=== PATIENT | male | born 1955 | race Caucasian/White ===

== ENCOUNTER 2017-11-09 19:08 | Inpatient (IN) | payer OTHER, MEDICAID, BC ==
[2017-11-09 20:17] LABS: ADD MAN DIFF? NO
[2017-11-09 20:22] LABS: WHITE BLOOD COUNT 17.1 10^3/ul (4.8-10.8)
[2017-11-09 20:22] LABS: ABNORMAL IP MESSAGE 1; BASOPHILS % 0.2 % (0.0-2.0); HEMATOCRIT 44.9 % (42.0-52.0); HEMOGLOBIN 15.2 g/dl (14.0-18.0); LYMPHOCYTES # 1.4 10^3/ul (0.8-2.9); LYMPHOCYTES % 8.2 % (15.0-51.0); MEAN CORPUSCULAR HEMOGLOBIN 32.8 pg (29.0-33.0); MEAN CORPUSCULAR HGB CONC 33.9 g/dl (32.0-37.0); MEAN PLATELET VOLUME 9.1 fl (7.4-10.4); MONOCYTE # 1.8 10^3/ul (0.3-0.9); MONOCYTES % 10.8 % (0.0-11.0); NEUTROPHIL # 13.6 10^3/ul (1.6-7.5); NEUTROPHILS % 79.9 % (39.0-77.0); PLATELET COUNT 258 10^3/UL (140-415); POSITIVE DIFF @See below; RED BLOOD COUNT 4.63 10^6/ul (4.70-6.10); RED CELL DISTRIBUTION WIDTH 11.8 % (11.5-14.5)
[2017-11-09] MEDS: SODIUM CHLORIDE 0.9% 1L BAG IV* (20:25)
[2017-11-09] MEDS: CEFEPIME 2GM/50 ML (PMX) 50 ML IVPB (20:26)
[2017-11-09 20:43] LABS: LACTIC ACID 3.5 mmol/L (0.5-2.0)
[2017-11-09 20:45] LABS: INR 1.09; PROTIME 14.3 Sec (11.9-14.9); PT RATIO 1.1
[2017-11-09 20:46] LABS: PARTIAL THROMBOPLASTIN TIME 31.5 Sec (25.0-35.0)
[2017-11-09 21:01] LABS: ALANINE AMINOTRANSFERASE 16 IU/L (13-69); ALBUMIN/GLOBULIN RATIO 0.93; ALKALINE PHOSPHATASE 158 IU/L (42-121); ANION GAP 22 (8-16); ASPARTATE AMINO TRANSFERASE 21 IU/L (15-46); BILIRUBIN,INDIRECT 0.6 mg/dl (0-1.1); BILIRUBIN,TOTAL 0.6 mg/dl (0.2-1.3); BLOOD UREA NITROGEN 20 mg/dl (7-20); CALCIUM 9.8 mg/dl (8.4-10.2); CARBON DIOXIDE 22 mmol/L (21-31); CHLORIDE 99 mmol/L (97-110); GLUCOSE 135 mg/dl (70-220); SODIUM 138 mmol/L (135-144); TOTAL PROTEIN 8.3 g/dl (6.1-8.1)
[2017-11-09 21:10] LABS: B-TYPE NATRIURETIC PEPTIDE 781 PG/ML (0-125)
[2017-11-09 21:13] LABS: TROPONIN-I < 0.012 ng/ml (0.00-0.12)
[2017-11-09] MEDS: morphine 4 MG/ML VIAL IV (21:53)
[2017-11-09 22:29] LABS: LACTIC ACID 1.7 mmol/L (0.5-2.0)
[2017-11-09] MEDS: KETOROLAC 15 MG INJ IV (22:47)
[2017-11-09] MEDS: AZITHROMYCIN 500MG/NS (PMX) 250 ML IVPB (22:47)
[2017-11-09] MEDS: ACETAMINOPHEN 500 MG TAB PO (22:47)
[2017-11-10] MEDS ORDERED: ZOLPIDEM 5 MG TAB PO
[2017-11-10] MEDS ORDERED: morphine 2 MG INJ IV
[2017-11-10] MEDS ORDERED: MAGNESIUM HYDROXIDE 30ML CUP PO
[2017-11-10] MEDS ORDERED: DOCUSATE SODIUM 100 MG CAP PO
[2017-11-10] MEDS ORDERED: NACL 0.9% 3 ML SYG IV
[2017-11-10] MEDS ORDERED: ONDANSETRON 4 MG INJ IV
[2017-11-10] MEDS: SOD CHLORIDE 0.9% 1,000 ML IV ×3 (01:40→22:13)
[2017-11-10 01:46] LABS: LACTIC ACID 1.4 mmol/L (0.5-2.0)
[2017-11-10] MEDS: PROMETHAZINE/CODEINE 5ML CUP PO ×4 (06:13→20:03)
[2017-11-10 07:14] LABS: WHITE BLOOD COUNT 12.3 10^3/ul (4.8-10.8)
[2017-11-10 07:14] LABS: ABNORMAL IP MESSAGE 1; HEMATOCRIT 35.2 % (42.0-52.0); HEMOGLOBIN 12.1 g/dl (14.0-18.0); MEAN CORPUSCULAR HEMOGLOBIN 33.5 pg (29.0-33.0); MEAN CORPUSCULAR HGB CONC 34.4 g/dl (32.0-37.0); MEAN CORPUSCULAR VOLUME 97.5 fl (82.0-101.0); MEAN PLATELET VOLUME 9.3 fl (7.4-10.4); PLATELET COUNT 214 10^3/UL (140-415); POSITIVE DIFF @See below; RED BLOOD COUNT 3.61 10^6/ul (4.70-6.10); RED CELL DISTRIBUTION WIDTH 11.9 % (11.5-14.5)
[2017-11-10 07:22] LABS: ADD MAN DIFF? YES
[2017-11-10 07:30] LABS: HEMOGLOBIN A1C 4.9 % (0-5.9)
[2017-11-10 07:46] LABS: ANION GAP 13 (8-16); BLOOD UREA NITROGEN 21 mg/dl (7-20); CARBON DIOXIDE 23 mmol/L (21-31); CHLORIDE 105 mmol/L (97-110); CREATININE 1.15 mg/dl (0.61-1.24); GLUCOSE 111 mg/dl (70-220); MAGNESIUM 1.7 mg/dl (1.7-2.5); PHOSPHORUS 2.5 mg/dl (2.5-4.9); POTASSIUM 3.6 mmol/L (3.5-5.1); SODIUM 137 mmol/L (135-144)
[2017-11-10] MEDS: CEFTRIAXONE 1 GM/50 ML (PMX) 50 ML IVPB (09:04)
[2017-11-10] MEDS: ACETAMINOPHEN 325 MG TAB PO (09:05)
[2017-11-10] MEDS: HYDROCODONE/APAP (5/325) TAB PO (16:38)
[2017-11-10] MEDS: AZITHROMYCIN 500MG/NS (PMX) 250 ML IVPB (22:56)
[2017-11-11] MEDS: HYDROCODONE/APAP (5/325) TAB PO ×3 (01:50→21:33)
[2017-11-11] MEDS: PROMETHAZINE/CODEINE 5ML CUP PO ×3 (06:17→22:41)
[2017-11-11] MEDS: SOD CHLORIDE 0.9% 1,000 ML IV ×2 (07:00→12:39)
[2017-11-11] MEDS: CEFTRIAXONE 1 GM/50 ML (PMX) 50 ML IVPB (09:25)
[2017-11-11 12:09] LABS: ADD UMIC YES; UR ASCORBIC ACID NEGATIVE (NEGATIVE); UR BILIRUBIN (Dip) NEGATIVE (NEGATIVE); UR BLOOD (Dip) 1+ mg/dL (NEGATIVE); UR CLARITY CLEAR (CLEAR); UR COLOR YELLOW (YELLOW); UR GLUCOSE (Dip) NEGATIVE (NEGATIVE); UR KETONES (Dip) TRACE mg/dL (NEGATIVE); UR LEUKOCYTE ESTERASE (Dip) NEGATIVE Leu/ul (NEGATIVE); UR NITRITE (Dip) NEGATIVE (NEGATIVE); UR RBC 0 /HPF (0-5); UR SPECIFIC GRAVITY (Dip) 1.014 (1.003-1.030); UR TOTAL PROTEIN (Dip) NEGATIVE (NEGATIVE); UR UROBILINOGEN (Dip) 2+ mg/dL (NEGATIVE); UR WBC 0 /HPF (0-5)
[2017-11-11] MEDS: LEVOFLOXACIN 750MG/D5W (PMX) 150 ML IVPB (13:51)
[2017-11-11 13:54] LABS: ABNORMAL IP MESSAGE 1; HEMATOCRIT 32.9 % (42.0-52.0); HEMOGLOBIN 11.3 g/dl (14.0-18.0); MEAN CORPUSCULAR HEMOGLOBIN 33.4 pg (29.0-33.0); MEAN CORPUSCULAR HGB CONC 34.3 g/dl (32.0-37.0); MEAN CORPUSCULAR VOLUME 97.3 fl (82.0-101.0); MEAN PLATELET VOLUME 8.8 fl (7.4-10.4); PLATELET COUNT 189 10^3/UL (140-415); POSITIVE DIFF @See below; RED BLOOD COUNT 3.38 10^6/ul (4.70-6.10)
[2017-11-11 13:56] LABS: ADD MAN DIFF? YES
[2017-11-11 14:11] LABS: ALANINE AMINOTRANSFERASE 46 IU/L (13-69); ALBUMIN 2.3 g/dl (3.3-4.9); ALBUMIN/GLOBULIN RATIO 0.82; ALKALINE PHOSPHATASE 134 IU/L (42-121); ANION GAP 7 (8-16); ASPARTATE AMINO TRANSFERASE 62 IU/L (15-46); BILIRUBIN,INDIRECT 0.2 mg/dl (0-1.1); BILIRUBIN,TOTAL 0.2 mg/dl (0.2-1.3); BLOOD UREA NITROGEN 13 mg/dl (7-20); CALCIUM 7.7 mg/dl (8.4-10.2); CARBON DIOXIDE 22 mmol/L (21-31); CHLORIDE 109 mmol/L (97-110); CREATININE 0.72 mg/dl (0.61-1.24); GLUCOSE 111 mg/dl (70-220); POTASSIUM 3.3 mmol/L (3.5-5.1); SODIUM 135 mmol/L (135-144); TOTAL PROTEIN 5.1 g/dl (6.1-8.1)
[2017-11-11 14:15] LABS: BAND NEUTROPHILS #M 1.8 10^3/ul (0.0-0.6); BAND NEUTROPHILS % (M) 17 % (0-4); EOSINOPHILS % (M) 2 % (0-7); LYMPHOCYTES #M 1.7 10^3/ul (0.8-2.9); LYMPHOCYTES % (M) 16 % (15-51); MONOCYTE #M 0.5 10^3/ul (0.3-0.9); MONOCYTES % (M) 5 % (0-11); PLATELET ESTIMATE NORMAL; SEG NEUT #M 6.9 10^3/ul (1.6-7.5); SEGMENTED NEUTROPHILS (M) % 61 % (39-77); SMUDGE%M 7 % (0-0)
[2017-11-11] MEDS: POTASSIUM CHLORIDE (SR) 20 MEQ TAB PO (15:57)
[2017-11-12] MEDS: LEVOFLOXACIN 750MG/D5W (PMX) 150 ML IVPB (13:53)
[2017-11-12] MEDS: HYDROCODONE/APAP (5/325) TAB PO ×2 (15:56→22:12)
[2017-11-12] MEDS: PROMETHAZINE/CODEINE 5ML CUP PO (15:56)
[2017-11-12 16:18] LABS: HAAIG REFLEX REFLEX FILED
[2017-11-12 16:46] LABS: B-TYPE NATRIURETIC PEPTIDE 1460 PG/ML (0-125)
[2017-11-12 17:35] LABS: HEPATITIS B SURFACE ANTIGEN NEGATIVE (NEGATIVE)
[2017-11-12 17:52] LABS: HEPATITIS B CORE ANTIBODY NEGATIVE (NEGATIVE); HEPATITIS C VIRAL ANTIBODY NEGATIVE (NEGATIVE)
[2017-11-12 17:53] LABS: HEPATITIS B SURFACE ANTIBODY NEGATIVE (NEGATIVE)
[2017-11-12] MEDS: predniSONE 20 MG TAB PO (17:58)
[2017-11-12] MEDS: PANTOPRAZOLE (EC) 40 MG TAB PO (17:58)
[2017-11-12] MEDS: FUROSEMIDE 20 MG INJ IV (20:57)
[2017-11-12] MEDS: GUAIFENESIN LA 600 MG TABSR PO (20:57)
[2017-11-12] MEDS: ALBUTEROL/IPRATROPIUM (NEB) 3 ML AMP HHN ×2 (21:00→21:46)
[2017-11-12] MEDS: NACL 3% FOR INHALATION 15 ML NEBU NEB (21:00)
[2017-11-13] MEDS: ALBUTEROL/IPRATROPIUM (NEB) 3 ML AMP HHN ×4 (01:44→12:06)
[2017-11-13 05:35] LABS: ADD MAN DIFF? NO
[2017-11-13 05:39] LABS: WHITE BLOOD COUNT 7.8 10^3/ul (4.8-10.8)
[2017-11-13 05:39] LABS: ABNORMAL IP MESSAGE 1; BASOPHILS % 0.3 % (0.0-2.0); HEMATOCRIT 35.6 % (42.0-52.0); HEMOGLOBIN 12.4 g/dl (14.0-18.0); LYMPHOCYTES # 0.5 10^3/ul (0.8-2.9); MEAN CORPUSCULAR HGB CONC 34.8 g/dl (32.0-37.0); MEAN CORPUSCULAR VOLUME 94.7 fl (82.0-101.0); MONOCYTE # 0.8 10^3/ul (0.3-0.9); MONOCYTES % 10.5 % (0.0-11.0); NEUTROPHIL # 6.3 10^3/ul (1.6-7.5); NEUTROPHILS % 80.2 % (39.0-77.0); PLATELET COUNT 290 10^3/UL (140-415); POSITIVE DIFF @See below; RED BLOOD COUNT 3.76 10^6/ul (4.70-6.10); RED CELL DISTRIBUTION WIDTH 11.8 % (11.5-14.5)
[2017-11-13] MEDS: PANTOPRAZOLE (EC) 40 MG TAB PO (06:05)
[2017-11-13 06:11] LABS: ALANINE AMINOTRANSFERASE 61 IU/L (13-69); ALBUMIN/GLOBULIN RATIO 0.88; ALKALINE PHOSPHATASE 139 IU/L (42-121); ANION GAP 14 (8-16); ASPARTATE AMINO TRANSFERASE 73 IU/L (15-46); BILIRUBIN,INDIRECT 0.3 mg/dl (0-1.1); BILIRUBIN,TOTAL 0.3 mg/dl (0.2-1.3); BLOOD UREA NITROGEN 15 mg/dl (7-20); CALCIUM 8.6 mg/dl (8.4-10.2); CARBON DIOXIDE 26 mmol/L (21-31); CHLORIDE 101 mmol/L (97-110); CREATININE 0.77 mg/dl (0.61-1.24); GLUCOSE 148 mg/dl (70-220); POTASSIUM 3.8 mmol/L (3.5-5.1); SODIUM 137 mmol/L (135-144); TOTAL PROTEIN 6.4 g/dl (6.1-8.1)
[2017-11-13] MEDS: predniSONE 20 MG TAB PO (09:04)
[2017-11-13] MEDS: GUAIFENESIN LA 600 MG TABSR PO (09:04)
[2017-11-13] MEDS: LEVOFLOXACIN 750MG/D5W (PMX) 150 ML IVPB (14:00)
== END 2017-11-13 14:54 | disposition home or self-care (01) | DRG 871 ==
LOC: PP2 22:36 → E/R 19:08
DX: A41.9 Sepsis, unspecified organism (principal); J18.9 Pneumonia, unspecified organism; N17.9 Acute kidney failure, unspecified; R65.20 Severe sepsis without septic shock; F17.200 Nicotine dependence, unspecified, uncomplicated; F12.90 Cannabis use, unspecified, uncomplicated; E86.0 Dehydration; J43.9 Emphysema, unspecified
CPT/HCPCS: 36415; 70450; 71045; 71250; 76705; 80048; 80053; 81001; 83036; 83605; 83735; 83880; 84100; 84484; 85025; 85610; 85730; 86704; 86706; 86708; 86709; 86803; 87040; 87086; 87275; 87276; 87279; 87280; 87340; 93005; 93306; 94640; 94664; 96365; 96375; 99291-25

== ENCOUNTER → 2017-12-07 | Outpatient (CLI) | payer OTHER ==
[2017-12-07 13:04] LABS: ADD MAN DIFF? NO
[2017-12-07 13:06] LABS: BASOPHIL # 0.1 10^3/ul (0.0-0.1); BASOPHILS % 1.3 % (0.0-2.0); EOSINOPHILS # 0.3 10^3/ul (0.0-0.5); HEMATOCRIT 42.5 % (42.0-52.0); HEMOGLOBIN 14.2 g/dl (14.0-18.0); LYMPHOCYTES # 2.5 10^3/ul (0.8-2.9); LYMPHOCYTES % 41.5 % (15.0-51.0); MEAN CORPUSCULAR HEMOGLOBIN 31.9 pg (29.0-33.0); MEAN CORPUSCULAR HGB CONC 33.4 g/dl (32.0-37.0); MEAN CORPUSCULAR VOLUME 95.5 fl (82.0-101.0); MEAN PLATELET VOLUME 9.3 fl (7.4-10.4); MONOCYTE # 0.6 10^3/ul (0.3-0.9); NEUTROPHIL # 2.5 10^3/ul (1.6-7.5); NEUTROPHILS % 41.9 % (39.0-77.0); PLATELET COUNT 184 10^3/UL (140-415); RED BLOOD COUNT 4.45 10^6/ul (4.70-6.10); RED CELL DISTRIBUTION WIDTH 11.8 % (11.5-14.5)
[2017-12-07 13:25] LABS: ALANINE AMINOTRANSFERASE 42 IU/L (13-69); ALBUMIN 4.2 g/dl (3.3-4.9); ALBUMIN/GLOBULIN RATIO 1.13; ALKALINE PHOSPHATASE 90 IU/L (42-121); ANION GAP 13 (8-16); ASPARTATE AMINO TRANSFERASE 28 IU/L (15-46); BILIRUBIN,INDIRECT 0.3 mg/dl (0-1.1); BILIRUBIN,TOTAL 0.3 mg/dl (0.2-1.3); BLOOD UREA NITROGEN 15 mg/dl (7-20); CALCIUM 9.4 mg/dl (8.4-10.2); CARBON DIOXIDE 26 mmol/L (21-31); CHLORIDE 107 mmol/L (97-110); CREATININE 0.94 mg/dl (0.61-1.24); GLUCOSE 98 mg/dl (70-220); POTASSIUM 4.4 mmol/L (3.5-5.1); SODIUM 142 mmol/L (135-144); TOTAL PROTEIN 7.9 g/dl (6.1-8.1)
== END | disposition home or self-care (01) ==
LOC: LAB 12:45
DX: J18.9 Pneumonia, unspecified organism (principal); R63.4 Abnormal weight loss; E87.5 Hyperkalemia
CPT/HCPCS: 80053; 85025